=== PATIENT | female | born 1950 | race Caucasian/White ===

== ENCOUNTER 2016-05-24 13:03 | Emergency (ER) | payer OTHER ==
[2016-05-24 13:16] VITALS: BP 116/69
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
[2016-05-24] MEDS ORDERED: NORCO-5 PO ONE (19:10)
--- NOTE | 2016-05-25 07:46 | Diag Imaging Result Document ---
PROCEDURE NAME: HEAD/C-SPINE W/O CONTRAST - 05/24/2016 CT HEAD AND C-SPINE WITHOUT CONTRAST: COMPARISON: 05/13/2015. FINDINGS: HEAD: There is no discrete intracranial mass, mass effect, or intracranial hemorrhage. There is no evidence of hydrocephalus. There is a left frontal scalp hematoma indicating contusion. The calvaria is intact. C-SPINE: There is very mild endplate degenerative change at C5-6 and C6-7 and mild left facet arthropathy at C7-T1. The central canal appears to be patent. There is no evidence of fracture, subluxation, or intrinsic osseous lesion, otherwise. Surrounding soft tissues are grossly unremarkable. IMPRESSION: 1. No evidence of acute intracranial pathology. 2. Soft tissue contusion at the frontal scalp on the left. 3. Mild degenerative changes but no evidence of fracture or other definite acute C-spine injury.
== END 2016-05-24 19:43 | disposition home or self-care (01) ==
LOC: P.ED 13:03
DX: S00.03XA Contusion of scalp, initial encounter (principal); R51 Headache; S00.81XA Abrasion of other part of head, initial encounter; R11.0 Nausea; J34.89 Other specified disorders of nose and nasal sinuses; M25.512 Pain in left shoulder; M47.9 Spondylosis, unspecified; I10 Essential (primary) hypertension; E78.5 Hyperlipidemia, unspecified; K21.9 Gastro-esophageal reflux disease without esophagitis; G89.29 Other chronic pain; E66.9 Obesity, unspecified; Z79.899 Other long term (current) drug therapy; V47.5XXA Car driver injured in collision with fixed or stationary object in traffic accident, initial encounter; W19.XXXA Unspecified fall, initial encounter
CPT/HCPCS: 70450; 72125